=== PATIENT | male | born 1940 | race Two or more races ===

== ENCOUNTER → 2018-01-17 13:58 | Outpatient (CLI) | payer MEDICARE, SELFPAY ==
[2018-01-17 15:13] LABS: Absolute Lymphocyte Count 2.42 X10^3/ul (0.83-4.51); Absolute Neutrophil Count 6.9 X10^3/uL (2.0-7.7); Basophil# 0.02 X10^3/uL; Basophil% 0.2 % (0-1); Differential Indicated SCAN CRITERIA MET; Hematocrit 31.4 % (40-54); Hemoglobin 9.9 g/dl (13.0-16.5); Lymphocyte # 2.42 X10^3/ul (4.0); Lymphocyte % 23.8 % (19-41); Mean Corp Hgb Conc 31.5 g/gl (32-36); Mean Corpuscular Hgb 35.2 pg (27.0-32.0); Mean Corpuscular Volume 111.7 fL (80-94); Mean Platelet Vol. 8.2 fl (6.2-12.0); Monocyte# 0.62 X10^3/uL; Monocyte% 6.1 % (0-10); Neutrophil # 6.94 X10^3/uL (2.7-7.7); Neutrophil % 68.3 % (47-70); POSITIVE COUNT NO; POSITIVE DIFFERENTIAL NO; POSITIVE MORPHOLOGY YES; Platelet Count 79 K/mm3 (150-450); RBC Distribution Width CV 16.6 % (11.6-14.6); RBC Distribution Width SD 66.9 fl (35.1-43.9); Red Blood Count 2.81 M/mm3 (4.6-6.2); White Blood Count 10.2 K/mm3 (4.4-11.0)
[2018-01-17 15:56] LABS: BUN 101 mg/dL (7-18); Creatinine, Serum 8.71 mg/dL (0.70-1.30); EST Glomerular Filtration Rate 6 mL/min (>60); Glucose 185 mg/dL (74-106)
[2018-01-17 15:57] LABS: Anion Gap 10 (5-15); BUN/Creat Ratio 11.6 RATIO (10-20); Calcium,Total 8.8 mg/dL (8.5-10.1); Chloride 111 mmol/L (98-107); Est Glom Filt Rate - Afr Amer 8 mL/min (>60); Potassium 6.6 mmol/L (3.5-5.1); Sodium Level 142 mmol/L (136-145)
[2018-01-17 20:46] LABS: Anisocytosis 1+; Macrocytosis 2+; Platelet Estimate MOD DEC (ADEQ)
== END ==
PROVIDERS: Physician Assistant; Family Provider Family Medicine; PCP Family Medicine; Visit Provider Family Medicine
DX: N18.5 Chronic kidney disease, stage 5 (principal)
CPT/HCPCS: 36415; 80048; 85025

== ENCOUNTER → 2018-01-18 08:48 | Day surgery (SDC) | payer MEDICARE, SELFPAY ==
[2018-01-17 15:20] VITALS: BMI 20.5
[2018-01-18 09:31] LABS: Potassium 6.1 mmol/L (3.5-5.1)
--- NOTE | 2018-01-18 12:43 | PCM.OPRPT ---
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 77-year-old gentleman was taken to the special procedures lab. Left extremity sterilely prepped and draped. He has a left extremity brachiocephalic AV fistula. 2% lidocaine was instilled closer to the arterial anastomosis micropuncture needle inserted micropuncture wire inserted 6 [place] short sheath was inserted [id number] was inserted I up sheath to a 7 [place] sheath. Using Isovue Arizmendi grams taken the left upper arm. This demonstrated that there was a faint blush of filling into the pseudoaneurysm which was within 6 cm of the arterial anastomosis. This was also an area of high-grade stenosis. 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 At the cephalic arch there is a high-grade area over at least 6 cm 90% venous outflow stenosis. The patient received 5000 units of heparin. I placed a 6 x 2.55 upon stent graft within the area of pseudoaneurysm and stricturing. I released that stent graft and then seated in place with the a 6 x 20 m Powerflex balloon. I then utilized the same Powerflex balloon to perform balloon angioplasty of the cephalic arch at the venous outflow. Final injection demonstrated resolution of flow into the pseudoaneurysm. There is improvement at the cephalic arch but incomplete resolution. The patient tolerated it well. The sheath was removed U suture of 4-0 nylon was placed. Blood loss was minimal. It is of note that he did receive 2 g of Ancef intravenously at the initiation of the procedure. He did receive 5000 units of heparin prior to the endovascular manipulation. Images Left extremity brachiocephalic arteriovenous fistula. Stenosis and pseudo-aneurysm within the proximal portion of the fistula. High-grade venous outflow stenosis. Subsequent to the stent graft placement there is resolution of blush of flow into the pseudoaneurysm. There is improvement in the high-grade venous outflow stenosis but incomplete resolution Plan The patient very may well need further stent graft treatment of his high-grade venous outflow stenosis at the cephalic arch. I did not want to place another prosthetic at this time until I am assured that he is pseudoaneurysm does not somehow in fact the stent graft is placed. The patient will receive his urgent hemodialysis today to treat his potassium of 6.1. There was minimal blood loss. We will see him back in the office in 3 weeks Ji Carvalho M.D., F.A.C.S. Type of Anesthesia:: Local
--- NOTE | 2018-01-18 12:50 | OP.PCM_ITS ---
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 77-year-old gentleman was taken to the special procedures lab. Left extremity sterilely prepped and draped. He has a left extremity brachiocephalic AV fistula. 2% lidocaine was instilled closer to the arterial anastomosis micropuncture needle inserted micropuncture wire inserted 6 [place] short sheath was inserted [id number] was inserted I up sheath to a 7 [place] sheath. Using Isovue Arizmendi grams taken the left upper arm. This demonstrated that there was a faint blush of filling into the pseudoaneurysm which was within 6 cm of the arterial anastomosis. This was also an area of high-grade stenosis. 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 At the cephalic arch there is a high-grade area over at least 6 cm 90% venous outflow stenosis. The patient received 5000 units of heparin. I placed a 6 x 2.55 upon stent graft within the area of pseudoaneurysm and stricturing. I released that stent graft and then seated in place with the a 6 x 20 m Powerflex balloon. I then utilized the same Powerflex balloon to perform balloon angioplasty of the cephalic arch at the venous outflow. Final injection demonstrated resolution of flow into the pseudoaneurysm. There is improvement at the cephalic arch but incomplete resolution. The patient tolerated it well. The sheath was removed U suture of 4-0 nylon was placed. Blood loss was minimal. It is of note that he did receive 2 g of Ancef intravenously at the initiation of the procedure. He did receive 5000 units of heparin prior to the endovascular manipulation. Images Left extremity brachiocephalic arteriovenous fistula. Stenosis and pseudo- aneurysm within the proximal portion of the fistula. High-grade venous outflow stenosis. Subsequent to the stent graft placement there is resolution of blush of flow into the pseudoaneurysm. There is improvement in the high-grade venous outflow stenosis but incomplete resolution Plan The patient very may well need further stent graft treatment of his high-grade venous outflow stenosis at the cephalic arch. I did not want to place another prosthetic at this time until I am assured that he is pseudoaneurysm does not somehow in fact the stent graft is placed. The patient will receive his urgent hemodialysis today to treat his potassium of 6.1. There was minimal blood loss. We will see him back in the office in 3 weeks Ji Carvalho M.D., F.A.C.S. Type of Anesthesia:: Local
== END ==
PROVIDERS: Physician Assistant; Family Provider Family Medicine; PCP Family Medicine; Visit Provider Surgery
DX: T82.590A Other mechanical complication of surgically created arteriovenous fistula, initial encounter (principal); I77.0 Arteriovenous fistula, acquired; I12.0 Hypertensive chronic kidney disease with stage 5 chronic kidney disease or end stage renal disease; N18.5 Chronic kidney disease, stage 5; N40.0 Benign prostatic hyperplasia without lower urinary tract symptoms; M10.9 Gout, unspecified; E03.9 Hypothyroidism, unspecified; Z99.2 Dependence on renal dialysis; Z87.891 Personal history of nicotine dependence; Z79.82 Long term (current) use of aspirin; Z79.899 Other long term (current) drug therapy
CPT/HCPCS: 36415; 36903; 84132; Q9967; C1725; C1769; C1874; C1894